=== PATIENT | female | born 1990 | race Caucasian/White ===

== ENCOUNTER 2022-07-25 15:07 | Emergency (ER) | payer BC, SELFPAY ==
[2022-07-25 16:20] LABS: Bilirubin Neg (Negative); Blood, Urine 250 (Negative); Clarity Cloudy (Clear); Glucose, Urine (Dipstick) Normal (Negative); Ketone, Urine Negative (Negative); Leukocyte Negative (Negative); Nitrite Negative (Negative); Protein, Urine (Dipstick) Negative (Neg-Trace); Urobilinogen Normal mg/dL (Less than 2)
[2022-07-25 16:25] LABS: #Basophils 0.1 10x3/uL (0.0-0.2); #Eosinphils 0.1 10x3/uL (0.0-0.5); #Monocytes 0.7 10x3/uL (0.0-1.1); #Neutrophils 6.1 10x3/uL (1.5-8.4); %Basophils 0.6 % (0.0-2.0); %Eosinophils 1.3 % (0.0-6.0); %Lymphocytes 22.1 % (18.0-47.0); %Monocytes 7.6 % (0.0-10.0); %Neutrophils 68.1 % (40.0-75.0); Hemoglobin 8.6 g/dL (12.0-15.5); Mean Corpuscular HGB CONC 33.6 g/dL (32.0-36.0); Mean Corpuscular Hemoglobin 29.6 pg (27.0-33.0); Mean Platelet Volume 11.1 fl (7.4-10.4); Platelet Count 250 10x3/uL (150-450); RBC Distribution Width 12.2 % (11.5-14.5); Red Blood Cell (RBC) Count 2.91 10x6/uL (3.90-5.03)
[2022-07-25 16:28] LABS: Bacteria/HPF 2+ HPF (None Seen); Squamous Epithelial 0-3 HPF (0-3); WBC/HPF 0-3 HPF (0-3)
[2022-07-25 16:35] LABS: ALT (SGPT) 20 U/L (8-55); AST (SGOT) 21 U/L (5-34); Albumin 4.1 g/dL (3.5-5.0); Alkaline Phosphatase 65 U/L (40-110); Anion Gap 12 mmol/L (10-20); BUN (Urea Nitrogen) 8 mg/dL (7.0-18.7); Bilirubin, Total 0.2 mg/dL (0.2-1.2); Calc. Creatinine Clearance 0 mL/min (70-130); Calcium 8.9 mg/dL (7.8-10.44); Carbon Dioxide 22 mmol/L (22-29); Chloride 108 mmol/L (98-107); Estimated GFR 115; Globulin 2.5 g/dL (2.4-3.5); Glucose 100 mg/dL (70-105); Potassium 3.7 mmol/L (3.5-5.1); Protein, Total 6.6 g/dL (6.0-8.3); Sodium 138 mmol/L (136-145)
== END 2022-07-25 17:45 | disposition home or self-care (01) ==
LOC: CSHERS 15:07
DX: N93.9 Abnormal uterine and vaginal bleeding, unspecified (principal)
CPT/HCPCS: 76856; 80053; 81003; 81015; 84702; 85025

== ENCOUNTER 2022-07-26 19:26 | Emergency (ER) | payer BC ==
[2022-07-26 20:25] LABS: #Eosinphils 0.2 10x3/uL (0.0-0.5); #Monocytes 0.4 10x3/uL (0.0-1.1); #Neutrophils 2.5 10x3/uL (1.5-8.4); %Basophils 0.8 % (0.0-2.0); %Eosinophils 4.4 % (0.0-6.0); %Lymphocytes 38.5 % (18.0-47.0); %Monocytes 8.4 % (0.0-10.0); %Neutrophils 47.7 % (40.0-75.0); Hemoglobin 7.5 g/dL (12.0-15.5); Mean Corpuscular HGB CONC 34.4 g/dL (32.0-36.0); Mean Corpuscular Hemoglobin 29.9 pg (27.0-33.0); Mean Corpuscular Volume 86.9 fl (81.6-98.3); Mean Platelet Volume 10.9 fl (7.4-10.4); Platelet Count 241 10x3/uL (150-450); Red Blood Cell (RBC) Count 2.51 10x6/uL (3.90-5.03); White Blood Cell (WBC) Count 5.3 10x3/uL (3.5-10.5)
[2022-07-26] MEDS ORDERED: Tranexamic Acid 1,000 MG/10 ML VIAL ONE (21:44)
== END 2022-07-27 00:51 | disposition home or self-care (01) ==
LOC: CSHERS 19:26
DX: N93.9 Abnormal uterine and vaginal bleeding, unspecified (principal); D64.9 Anemia, unspecified
CPT/HCPCS: 36430; 85025; 86850; 86900; 86901; 96365; P9016

== ENCOUNTER 2022-07-31 17:48 | Emergency (ER) | payer BC ==
[2022-07-31 18:50] LABS: #Eosinphils 0.1 10x3/uL (0.0-0.5); #Monocytes 0.3 10x3/uL (0.0-1.1); #Neutrophils 3.7 10x3/uL (1.5-8.4); %Basophils 0.7 % (0.0-2.0); %Eosinophils 2.2 % (0.0-6.0); %Lymphocytes 24.4 % (18.0-47.0); %Neutrophils 66.5 % (40.0-75.0); Hemoglobin 9.9 g/dL (12.0-15.5); Mean Corpuscular HGB CONC 33.7 g/dL (32.0-36.0); Mean Corpuscular Volume 89.1 fl (81.6-98.3); Mean Platelet Volume 10.5 fl (7.4-10.4); Platelet Count 335 10x3/uL (150-450); RBC Distribution Width 13.1 % (11.5-14.5); White Blood Cell (WBC) Count 5.5 10x3/uL (3.5-10.5)
[2022-07-31 18:51] LABS: BHCG - Serum POSITIVE (NEGATIVE); Pregs Control Background? CLEAR/WHITE (CLR/WHITE); Pregs Control Bar Appear? YES (CONTROL BAR)
[2022-07-31 19:00] LABS: ALT (SGPT) 29 U/L (8-55); AST (SGOT) 31 U/L (5-34); Albumin 4.5 g/dL (3.5-5.0); Alkaline Phosphatase 69 U/L (40-110); Anion Gap 13 mmol/L (10-20); BUN (Urea Nitrogen) 14 mg/dL (7.0-18.7); Bilirubin, Total 0.3 mg/dL (0.2-1.2); Calc. Creatinine Clearance 0 mL/min (70-130); Calcium 9.6 mg/dL (7.8-10.44); Carbon Dioxide 26 mmol/L (22-29); Chloride 106 mmol/L (98-107); Estimated GFR 93; Globulin 2.5 g/dL (2.4-3.5); Glucose 101 mg/dL (70-105); Potassium 3.9 mmol/L (3.5-5.1); Sodium 141 mmol/L (136-145)
== END 2022-07-31 20:10 | disposition home or self-care (01) ==
LOC: CSHERS 17:48
DX: D64.9 Anemia, unspecified (principal)
CPT/HCPCS: 71045; 80053; 83880; 84484; 84703; 85025; 86850; 86900; 86901; 93005

== ENCOUNTER 2023-12-28 | Inpatient (IN) | payer BC | END 2023-12-31 12:05 | disposition home or self-care (01) | DRG 787 | PROVIDERS: ADMIT Obstetrics & Gynecology | PROC: 10D00Z1 Extraction of Products of Conception, Low, Open Approach (ICD-10-PCS; principal; 2023-12-28) | PROC: 10D17Z9 Manual Extraction of Products of Conception, Retained, Via Natural or Artificial Opening (ICD-10-PCS; 2023-12-28) | DX: O34.29 Maternal care due to uterine scar from other previous surgery (principal); E23.2 Diabetes insipidus; N17.9 Acute kidney failure, unspecified; Z3A.37 37 weeks gestation of pregnancy; Z37.0 Single live birth; O99.284 Endocrine, nutritional and metabolic diseases complicating childbirth; E78.5 Hyperlipidemia, unspecified; O99.892 Other specified diseases and conditions complicating childbirth; E86.0 Dehydration ==

== ENCOUNTER 2025-07-08 19:44 | Day surgery (SDC) | payer BC | END 2025-07-08 20:53 | disposition home or self-care (01) | LOC: CSHLD/OP 19:44 | PROVIDERS: ATTEND Obstetrics & Gynecology | DX: O47.03 False labor before 37 completed weeks of gestation, third trimester (principal); Z3A.36 36 weeks gestation of pregnancy | CPT/HCPCS: 99283 ==

== ENCOUNTER 2025-07-16 09:53 | Outpatient (CLI) | payer BC | END 2025-07-16 09:54 | disposition home or self-care (01) | LOC: CSHLAB 09:53 | PROVIDERS: ATTEND Obstetrics & Gynecology | DX: Z01.812 Encounter for preprocedural laboratory examination (principal); O34.219 Maternal care for unspecified type scar from previous cesarean delivery ==

== ENCOUNTER 2025-07-17 05:27 | Inpatient (IN) | payer BC ==
[2025-07-16 11:00] LABS: Hematocrit 39.8 % (34.9-44.5); Hemoglobin 13.6 g/dL (12.0-15.5); Platelet Count 219 10x3/uL (150-450)
[2025-07-16 11:42] LABS: Hep B Surf Ag Non-Reactive S/CO (NonReactive)
[2025-07-16 11:43] LABS: Syphilis Antibody Index 0.14 S/CO (<1.00 Non-Reactive)
[2025-07-17 06:02] VITALS: BMI 30.4
[2025-07-17] MEDS ORDERED: Tranexamic Acid 1,000 MG/10 ML VIAL IVP PRN (06:47)
[2025-07-17] MEDS ORDERED: Oxytocin 30 units/NS 500 ML 500 ML IV SCH (06:47)
[2025-07-17] MEDS ORDERED: Diphenoxylate HCl/Atropine Tablet PO PRN ×2 (06:47)
[2025-07-17] MEDS ORDERED: Bicitra 30 ML UDCUP PO PRN (06:47)
[2025-07-17] MEDS ORDERED: Ondansetron PF 4 MG/2 ML Vial IVP PRN ×2 (06:47→08:47)
[2025-07-17] MEDS ORDERED: Carboprost 250 MCG/ML AMP IM PRN (06:47)
[2025-07-17] MEDS ORDERED: hydrALAZINE 20 MG/ML VIAL SLOW IVP PRN ×2 (06:47→11:58)
[2025-07-17] MEDS ORDERED: Famotidine/PF 20 mg/2ml Vial SLOW IVP PRN (06:47)
[2025-07-17] MEDS ORDERED: Methylergonovine 0.2 MG/ML VIAL IM PRN (06:47)
[2025-07-17] MEDS ORDERED: diphenhydrAMINE 50 MG/ML VIAL IVP PRN (08:47)
[2025-07-17] MEDS ORDERED: HYDROmorphone 0.5 MG/0.5 ML SYRINGE SLOW IVP PRN (08:47)
[2025-07-17] MEDS ORDERED: Meperidine HCl/PF 25 MG (1 mL) VIAL SLOW IVP PRN (08:47)
[2025-07-17] MEDS ORDERED: Communication Order-Pharmacy FS SCH (09:00)
[2025-07-17] MEDS: Ketorolac Tromethamine 30 MG (1 mL) VIAL IVP SCH (10:07)
[2025-07-17] MEDS ORDERED: diphenhydrAMINE 25 MG CAP PO PRN (11:58)
[2025-07-17] MEDS: Ondansetron PF 4 MG/2 ML Vial IVP PRN (12:03)
[2025-07-17] MEDS: Oxytocin 10 UNITS/ML VIAL ONE (12:14)
[2025-07-17] MEDS: PHENYLEPHRINE-NS 100 MCG/ML 10 ML SYRINGE ONE ×2 (12:15)
[2025-07-17] MEDS: Boostrix 0.5 ML (Tdap) VIAL (>/=7 yrs of age) IM ONE (12:54)
[2025-07-17] MEDS: Ketorolac Tromethamine 30 MG (1 mL) VIAL IVP PRN (18:16)
[2025-07-17] MEDS ORDERED: HYDROcodone/Acetaminophen 5/325 mg Tablet PO PRN ×2 (21:00)
[2025-07-18 04:14] LABS: Hematocrit 33.5 % (34.9-44.5); Hemoglobin 11.5 g/dL (12.0-15.5); Mean Corpuscular Hemoglobin 31.4 pg (27.0-33.0); Mean Corpuscular Volume 91.5 fL (81.6-98.3); Platelet Count 175 10x3/uL (150-450); Red Blood Cell (RBC) Count 3.66 10x6/uL (3.90-5.03); White Blood Cell (WBC) Count 9.66 10x3/uL (3.5-10.5)
[2025-07-18] MEDS: Acetaminophen 325 MG TAB PO PRN (08:53)
[2025-07-18] MEDS: Simethicone Chewable 80 MG TAB PO PRN (08:54)
[2025-07-18] MEDS: Ibuprofen 800 MG TAB PO SCH (14:15)
[2025-07-19 08:51] VITALS: BP 111/61; TEMP 99.1
== END 2025-07-19 12:13 | disposition home or self-care (01) | DRG 788 ==
LOC: CSHLD 05:27 → CSHPP 11:12
PROVIDERS: ADMIT Obstetrics & Gynecology; ATTEND Obstetrics & Gynecology
PROC: 10D00Z1 Extraction of Products of Conception, Low, Open Approach (ICD-10-PCS; principal; 2025-07-17)
DX: O34.211 Maternal care for low transverse scar from previous cesarean delivery (principal); Z37.0 Single live birth; Z3A.37 37 weeks gestation of pregnancy; Z79.899 Other long term (current) drug therapy
CPT/HCPCS: 36415; 51702; 85014; 85018; 85027; 85049; 86780; 86850; 86900; 86901; 87340; J1885; J2274; J2590